=== PATIENT | female | born 2000 | race Caucasian/White ===

== ENCOUNTER → 2023-04-03 | Outpatient (CLI) | payer OTHER | LOC: RAD 08:05 | PROVIDERS: ATTEND Urology | DX: N20.1 Calculus of ureter (principal) | CPT/HCPCS: 74018; 81025 ==

== ENCOUNTER 2023-04-05 18:25 | Inpatient (IN) | payer OTHER ==
[~2023-04-05] VITALS: Ht 152.4 cm; Wt 53.1 kg
[~2023-04-05 18:25] MED LIST: DEXAMETHASONE SOD PHOS INJ 4 MG/ML SDV ONE; EPHEDRINE SULFATE INJ 50 MG/ML VIAL ONE; GENTAMICIN SULFATE 40 MG/ML 2 ML VIAL ONE; KETOROLAC TROMETHAMINE 30 MG/ML VIAL ONE; LIDOCAINE HCL 2% LOCAL INJ 5 ML SDV VIAL INJ ONE; ONDANSETRON HCL INJ 2MG/ML 2ML 2 MG/ML VIAL ONE; POVIDONE IODINE 0.05% 0.05 % ML PO ONE; PROPOFOL IV EMULSION 10 MG/ML 20 ML VIAL ONE; SEVOFLURANE INHAL SOLN 250 ML PEN BTL ONE
[2023-04-05] MEDS ORDERED: Morphine 4mg INJECTION 4 MG/ML INJ IV PRN (18:30)
[2023-04-05] MEDS ORDERED: ONDANSETRON HCL INJ 2MG/ML 2ML 2 MG/ML VIAL ONE (19:03)
[2023-04-05] MEDS ORDERED: KETOROLAC TROMETHAMINE 30 MG/ML VIAL ONE (19:04)
[2023-04-05] MEDS ORDERED: CEFTRIAXONE 1 GM VIAL ONE (19:04)
[2023-04-05] MEDS: SODIUM CHLORIDE 0.9% 1000ML 1,000 ML IV SCH (19:07)
[2023-04-05] MEDS: KETOROLAC TROMETHAMINE 30 MG/ML VIAL IV PRN ×2 (19:09→20:28)
[2023-04-05] MEDS: ONDANSETRON HCL INJ 2MG/ML 2ML 2 MG/ML VIAL IV PRN (19:13)
[2023-04-05 19:45] LABS: CLARITY,URINE CLEAR (CLEAR); COLOR,URINE YELLOW (YELLOW)
[2023-04-05 19:46] LABS: KETONES,URINE NEGATIVE (NEGATIVE); LEUKOCYTE ESTERASE ,URINE NEGATIVE (NEGATIVE); NITRITE,URINE NEGATIVE (NEGATIVE); PROTEIN,URINE DIPSTICK >=300 (NEGATIVE); URINE UROBILINOGEN 0.2 mg/dL (0.2 - 1)
[2023-04-05 19:53] LABS: BASOPHILS # (AUTO) 0.1 (0.0-0.1); BASOPHILS % 0.8 % (0.0-1.0); EOSINOPHILS # (AUTO) 0.3 (0.0-0.4); EOSINOPHILS % 3.7 % (0.0-6.0); HEMATOCRIT 33.1 % (34.2-44.1); HEMOGLOBIN 10.6 g/dL (12.0-16.0); LYMPHOCYTES # (AUTO) 3.1 (1.0-3.2); LYMPHOCYTES % 39.3 % (18.0-39.1); MEAN CORPUSCULAR HEMOGLOBIN 29.1 pg (28-32); MEAN CORPUSCULAR VOLUME 90.9 fL (81-99); MONOCYTES # (AUTO) 0.5 (0.2-0.8); MONOCYTES % 5.9 % (4.4-11.3); NEUTROPHILS # (AUTO) 3.9 (2.1-6.9); NEUTROPHILS % 49.9 % (38.7-80.0); PLATELET COUNT 385 x10e3/uL (140-360); RED BLOOD COUNT 3.64 x10e6/uL (3.6-5.1)
[2023-04-05 19:55] LABS: BACTERIA,URINE MODERATE /HPF
[2023-04-05 19:56] LABS: MUCUS,URINE FEW (RARE)
[2023-04-05 20:06] LABS: ALBUMIN 4.1 g/dL (3.5-5.0); ALBUMIN/GLOBULIN RATIO 1.3 (0.8-2.0); ANION GAP 13.1 mmol/L (8-16); CALCIUM 9.7 mg/dL (8.4-10.2); CREATININE, SERUM 0.89 mg/dL (0.57-1.11); POTASSIUM 4.1 mmol/L (3.5-5.1)
[2023-04-05 20:45] VITALS: BP 104/66; PULSE 61; RESP 20; TEMP 97.7; O2SAT 100
[2023-04-05 20:48] VITALS: BP 104/66; PULSE 61; RESP 20; TEMP 97.7; O2SAT 100
[2023-04-05 20:50] VITALS: BP 104/66; PULSE 61; RESP 20; TEMP 97.7; O2SAT 100
[2023-04-05] MEDS ORDERED: DEXTROSE 50% SYRINGE 50 ML IV PRN (21:15)
[2023-04-05] MEDS ORDERED: DIPHENHYDRAMINE HCL 25 MG CAP PO PRN (21:15)
[2023-04-05] MEDS ORDERED: HYDRALAZINE HCL 20 MG/ML VIAL IV PRN (21:15)
[2023-04-05] MEDS ORDERED: SIMETHICONE 80 MG CHEW PO PRN (21:15)
[2023-04-05] MEDS ORDERED: POTASSIUM CHLORIDE 20 MEQ TAB CR PO PRN (21:15)
[2023-04-05] MEDS ORDERED: MELATONIN 5 MG TABLET PO PRN (21:15)
[2023-04-05] MEDS ORDERED: ALBUTEROL SULF 0.083% NEB SOLN 3 ML NEB INH PRN (21:15)
[2023-04-05] MEDS ORDERED: BENZONATATE 100 MG CAP PO PRN (21:15)
[2023-04-05] MEDS ORDERED: IPRATROPIUM BROMIDE 0.02% 2.5 ML NEB INH PRN (21:15)
[2023-04-05] MEDS ORDERED: ACETAMINOPHEN 325 MG TAB PO PRN (21:15)
[2023-04-05] MEDS ORDERED: DOCUSATE SODIUM 100 MG CAP PO PRN (21:15)
[2023-04-05] MEDS ORDERED: LIDOCAINE 4% PATCH TP PRN (21:15)
[2023-04-06] VITALS (7 sets, daily range): BP systolic 94–131; BP diastolic 50–80; PULSE 58–81; RESP 16–20; TEMP 97.2–97.7; O2SAT 96–100
[2023-04-06] MEDS: SODIUM CHLORIDE 0.9% 1000ML 1,000 ML IV SCH (04:36)
[2023-04-06 06:06] LABS: BASOPHILS % 0.5 % (0.0-1.0); EOSINOPHILS # (AUTO) 0.2 (0.0-0.4); EOSINOPHILS % 3.4 % (0.0-6.0); HEMATOCRIT 28.9 % (34.2-44.1); HEMOGLOBIN 9.2 g/dL (12.0-16.0); LYMPHOCYTES # (AUTO) 1.9 (1.0-3.2); LYMPHOCYTES % 32.8 % (18.0-39.1); MEAN CORPUSCULAR HEMOGLOBIN 28.9 pg (28-32); MEAN CORPUSCULAR HGB CONC 31.8 g/dL (31-35); MEAN CORPUSCULAR VOLUME 90.9 fL (81-99); MONOCYTES # (AUTO) 0.3 (0.2-0.8); MONOCYTES % 5.7 % (4.4-11.3); NEUTROPHILS # (AUTO) 3.4 (2.1-6.9); NEUTROPHILS % 57.3 % (38.7-80.0); PLATELET COUNT 293 x10e3/uL (140-360); RED BLOOD COUNT 3.18 x10e6/uL (3.6-5.1); RED CELL DISTRIBUTION WIDTH 14.9 % (11.7-14.4)
[2023-04-06] MEDS ORDERED: IOPAMIDOL 610MG/1ML 300 MG/ML VIAL IV ONE ×2 (06:25→06:38)
[2023-04-06 06:29] LABS: ANION GAP 10.8 mmol/L (8-16); CALCIUM 8.7 mg/dL (8.4-10.2); CREATININE, SERUM 0.69 mg/dL (0.57-1.11); POTASSIUM 3.8 mmol/L (3.5-5.1)
[2023-04-06 06:51] LABS: MAGNESIUM 1.7 MG/DL (1.3-2.1); PHOSPHORUS 4.7 MG/DL (2.3-4.7)
[2023-04-06] MEDS: PANTOPRAZOLE SOD 40 MG TABEC PO SCH (07:30)
[2023-04-06] MEDS ORDERED: PHENAZOPYRIDINE HCL 100 MG TAB PO PRN (08:00)
[2023-04-06] MEDS ORDERED: ACETAMINOPHEN/CODEINE 300MG - 30MG TAB PO PRN (08:00)
[2023-04-06] MEDS: KETOROLAC TROMETHAMINE 30 MG/ML VIAL IV PRN ×2 (09:21→21:20)
[2023-04-06] MEDS: ONDANSETRON HCL INJ 2MG/ML 2ML 2 MG/ML VIAL IV PRN (09:21)
[2023-04-06] MEDS: SOLIFENACIN SUCCINATE 5 MG TAB PO SCH (09:23)
[2023-04-06] MEDS ORDERED: FENTANYL CITRATE/PF 100MCG/2 ML INJ ONE (14:41)
[2023-04-06] MEDS ORDERED: ENOXAPARIN SOD INJ 40 MG/0.4 ML SYR SC SCH (17:00)
[2023-04-07] VITALS: BP 105/49; PULSE 60; RESP 18; TEMP 97.6; O2SAT 100
[2023-04-07 04:53] VITALS: BP 96/52; PULSE 58; RESP 18; TEMP 97.6; O2SAT 100
[2023-04-07] MEDS: PANTOPRAZOLE SOD 40 MG TABEC PO SCH (08:12)
[2023-04-07] MEDS: SOLIFENACIN SUCCINATE 5 MG TAB PO SCH (08:12)
[2023-04-07 08:26] VITALS: BP 113/72; PULSE 55; RESP 16; TEMP 97.7; O2SAT 100
[2023-04-07 09:00] VITALS: BP 113/72; PULSE 55; RESP 16; TEMP 97.7; O2SAT 100
== END 2023-04-07 10:16 | disposition home or self-care (01) | DRG 660 ==
LOC: ER 18:30 → ERHOLD 18:31 → MED/SURG3 20:26
PROVIDERS: ADMIT Internal Medicine; ATTEND Internal Medicine
PROC: 0TC68ZZ Extirpation of Matter from Right Ureter, Via Natural or Artificial Opening Endoscopic (ICD-10-PCS; 2023-04-06)
PROC: 0TP5X0Z Removal of Drainage Device from Kidney, External Approach (ICD-10-PCS; 2023-04-06)
PROC: BT141ZZ Fluoroscopy of Kidneys, Ureters and Bladder using Low Osmolar Contrast (ICD-10-PCS; principal; 2023-04-06 07:17)
PROC: 0T768DZ Dilation of Right Ureter with Intraluminal Device, Via Natural or Artificial Opening Endoscopic (ICD-10-PCS; 2023-04-06 07:17)
DX: T83.84XA Pain due to genitourinary prosthetic devices, implants and grafts, initial encounter (principal); N13.6 Pyonephrosis; N39.0 Urinary tract infection, site not specified; N81.2 Incomplete uterovaginal prolapse; D64.9 Anemia, unspecified; R80.9 Proteinuria, unspecified; R31.29 Other microscopic hematuria; Y73.8 Miscellaneous gastroenterology and urology devices associated with adverse incidents, not elsewhere classified; Y92.89 Other specified places as the place of occurrence of the external cause; Z20.822 Contact with and (suspected) exposure to COVID-19
CPT/HCPCS: 0223U; 36415; 74420; 80048; 80053; 81001; 83735; 83970; 84100; 84550; 84702; 85025; 87086; 87186; 88300; 99284; C1758; C1874; J0696; J1100; J1580; J1885; J2001; J2405; J7030